=== PATIENT | male | born 1980 | race Caucasian/White ===

== ENCOUNTER 2022-05-05 05:01 | Emergency (ER) | payer OTHER, SELFPAY ==
[2022-05-05] VITALS (17 sets, daily range): BP systolic 111–146; BP diastolic 62–93; PULSE 63–98; RESP 11–16; TEMP 36.1; O2SAT 93–98
--- NOTE | ~2022-05-05 | CT_ITS ---
EXAMINATION: CT abdomen pelvis wo con DATE: 05/05/2022 05:55 INDICATION: Left flank pain. TECHNIQUE: Computed tomography (CT) of the abdomen and pelvis was performed without intravenous contr ast. Automated exposure control and iterative reconstruction technique were employed. The dose-length product was 1336.82 mGy-cm. COMPARISON: None. FINDINGS: The visualized portions of the lung bases are clear without pneumonia or pleural effusion. The heart size is normal. No pericardial effusion. The liver and spleen are normal. There are changes of cholecystectomy. The pancreas and adrenal glands are normal. Right kidney are normal. There is a 1 mm stone in left kidney. There is prominent fat in left inguinal canal that may be a hernia. There are no dilated loops of bowel. The appendix is not visualized. There are no pathologically enlarged l ymph nodes. There is no free intraperitoneal fluid. There is mild thoracolumbar spondylosis. IMPRESSION: 1. 1 mm nonobstructing left kidney stone. 2. Prominent fat in left inguinal canal that may be a hernia. Reviewed, dictated and finalized at location A.
--- NOTE | ~2022-05-05 | CT_ITS ---
EXAMINATION: CTA abdomen pelvis DATE: 05/05/2022 07:28 INDICATION: Left flank pain. TECHNIQUE: Computed tomographic angiography (CTA) of the abdomen and pelvis was performed with 100 mL Omnipaque-350 intravenous contrast. Automated exposure control and iterative reconstruction techniqu e were employed. The dose-length product was 1030.99 mGy-cm. Maximum intensity projection 3D-reconstr uctions of the aorta and other arteries were constructed by the technologist on a separate workstatio n. COMPARISON: CT abdomen and pelvis 05/05/2022 FINDINGS: The visualized portions of the lung bases demonstrate mild atelectasis. No pleural effusion . The heart size is normal. No pericardial effusion. The liver and spleen are normal. There are winters es of cholecystectomy. The pancreas, adrenal glands, and kidneys are normal. There is prominent fat i n left inguinal canal that may be a hernia. There are no dilated loops of bowel. The appendix is not visualized. There are no pathologically enlarged lymph nodes. There is no free intraperitoneal fluid. Abdominal aorta is normal in caliber. 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 There is no significant stenosis of superior mesenteric artery, inferior mesenteric artery, or the renal arteries. There is mild thoracolumbar spondylosis. IMPRESSION: 1. Prominent fat in the left inguinal canal that may be a hernia. 2. 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 Reviewed, dictated and finalized at location A. IMPRESSION: 1. Prominent fat in the left inguinal canal that may be a hernia. 2. 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
--- NOTE | 2022-05-05 05:05 | ED.BACK ---
HPI - Back Pain/Injury General Chief Complaint: Back Pain/Injury <Elizabeth Chacko MD - Last Filed: 05/05/22 07:20> Stated Complaint: left flank pain x several months <Elizabeth Chacko MD - Last Filed: 05/05/22 07:20> Time Seen by Provider: 05/05/22 05:05 <Elizabeth Chacko MD - Last Filed: 05/05/22 07:20> Source: patient <Elizabeth Chacko MD - Last Filed: 05/05/22 07:20> Mode of arrival: ambulatory <Elizabeth Chacko MD - Last Filed: 05/05/22 07:20> Limitations: no limitations <Elizabeth Chacko MD - Last Filed: 05/05/22 07:20> History of Present Illness HPI Narrative: The patient is a 42-year-old male with a history of hypertension, hyperlipidemia, type 2 diabetes, pancreatitis, presenting to the emergency department for evaluation of left flank pain. Patient states he has had left flank pain intermittently over the past 3 weeks since he was discharged home from [facility] where he was admitted for pancreatitis. Patient denies alcohol use, states that they attributed his pancreatitis to medication he was taking for his diabetes. Patient states he does not remember the name of his medication. Patient states he is now taking Jardiance which she has been tolerating well. He reports intermittent left flank pain that has been acute and sharp in nature, worsening over the past evening. Patient associated nausea without vomiting. He denies fever, chills, chest pain, back pain. He does report left lower flank pain. He denies testicular pain. He denies dysuria or hematuria. Patient states that he was referred to a GI specialist at [place] for his pancreatitis and has not had follow-up at this point. He also was referred to urology for kidney stones that were found on his CT scan at [facility], has not had follow-up with urology at this point either. <Elizabeth Chacko MD - Last Filed: 05/05/22 07:20> Related Data Allergies/Adverse Reactions: Allergies Allergy/AdvReac Type Severity Reaction Status Date / Time No Known Allergies Allergy Verified 05/05/22 05:15 <Elizabeth Chacko MD - Last Filed: 05/05/22 07:20> Review of Systems Review of Systems: CONSTITUTIONAL: Denies fever, chills, or sweats. CARDIOVASCULAR: Denies chest pain, palpitations, or edema. RESPIRATORY: Denies cough or dyspnea. GASTROINTESTINAL: Denies abdominal pain, nausea, vomiting, or diarrhea. Reports left flank pain. GENITOURINARY: Denies dysuria or hematuria. SKIN: Denies rash or itching. MUSCULOSKELETAL: Reports left back pain, denies other joint pain, or myalgia. NEUROLOGIC: Denies headache, numbness, or weakness. <Elizabeth Chacko MD - Last Filed: 05/05/22 07:20> [facility] Social History Social History: Social History (Updated 05/05/22 @ 05:31 by Elizabeth Chacko MD) Smoking status: Current every day smoker Tobacco type: cigarettes Alcohol intake: never Substance use: never Living arrangements: with family Gender identity (if verbalized by the patient): Male <Elizabeth Chacko MD - Last Filed: 05/05/22 07:20> Exam Narrative: GENERAL: Awake, alert, conversant HEAD: Normocephalic, atraumatic. EYES: PERRLA and EOMI. ENT: Nares clear, no rhinorrhea or epistaxis. Mucous membranes moist. NECK: Supple. CHEST: No respiratory distress, breathing even and non labored HEART: Regular rate, sinus rhythm ABDOMEN:Non distended, non tender throughout all 4 quadrants, no rebound, rigidity or guarding. No flank tenderness bilaterally. No midline lumbar pain. EXTREMITIES: Normal range of motion. No edema. SKIN: Warm, dry, no rash. NEURO:No focal deficits. Alert and oriented x3 <Elizabeth Chacko MD - Last Filed: 05/05/22 07:20> Course Reevaluation(s) Reevaluation #1: CT was concerning for possible median arcuate ligament syndrome. Case was discussed with our general surgeon and they recommend following up with vascular. Case was discussed with vascular at [facility]
[2022-05-05] MEDS: SODIUM CHLORIDE 0.9% IV 1,000 ML 999 ML IV CONT (05:36)
[2022-05-05] MEDS: ONDANSETRON INJ 4 MG/2 ML VIAL IV PUSH (05:37)
[2022-05-05] MEDS: MORPHINE SULFATE (*CRX) 4 MG/ML INJ IV PUSH (05:38)
[2022-05-05 06:05] LABS: Basophils Absolute Auto 0.1 K/mm3 (0.0-0.1); Basophils Percent Auto 0.8 % (0.2-1.2); Eosinophils Absolute Auto 0.3 K/mm3 (0-0.3); Eosinophils Percent Auto 3.3 % (0-4.4); Hematocrit 52.6 % (42.0-52.0); Hemoglobin 17.3 g/dL (14.0-18.0); Immature Granulocyte Absolute 0.05 K/mm3 (0.00-0.031); Immature Granulocyte Percent A 0.6 % (0-0.5); Lymphocytes Absolute Auto 2.87 K/mm3 (0.9-3.2); Mean Corpuscular HGB Conc 32.9 g/dl (32-36); Mean Corpuscular Hemoglobin 30.1 pg (26-34); Mean Corpuscular Volume 91.6 fl (80-100); Mean Platelet Volume 10.2 fl (7.4-10.4); Monocytes Absolute Auto 0.7 K/mm3 (0.1-0.6); Monocytes Percent Auto 8.3 % (2.6-8.5); Neutrophils Absolute Auto 4.5 K/mm3 (1.3-6.7); Platelet Count Result 267 k/mm3 (150-375); Red Blood Count 5.74 M/mm3 (4.6-6.20); Red Cell Distribution Width 12.4 % (11.5-14.5); White Blood Count 8.4 K/mm3 (4.5-10.0)
[2022-05-05 06:14] LABS: Alanine Aminotransferase 70 U/L (6-50); Albumin Level 4.6 g/dL (3.5-5.1); Alkaline Phosphatase 73 U/L (38-126); Anion Gap 9 mmol/L (8-16); Aspartate Amino Transferase 52 U/L (17-59); Bilirubin,Total 0.7 mg/dL (0.2-1.3); Blood Urea Nitrogen 15 mg/dL (9-20); Calcium 9.1 mg/dL (8.4-10.2); Carbon Dioxide 22 mmol/L (22-30); Chloride 104 mmol/L (98-107); Estimated CRCL calculation 136 ml/min; Estimated Glomerular Filt Rate > 60; Glucose 185 mg/dL (65-110); Lipase 330 U/L (23-300); Potassium 4.2 mmol/L (3.4-5.0); Sodium 135 mmol/L (137-145)
[2022-05-05 06:54] LABS: SARS-CoV-2 RNA PCR Negative
[2022-05-05 07:01] LABS: Add Urine Microscopic? YES; Appearance Urine Clear (Clear); Bilirubin Urine Negative (Negative); Blood Urine 2+ (Negative); Color Urine Yellow (Yellow); Glucose Urine UA 3+ mg/dL (Negative); Ketones Urine Trace mg/dL (Negative); Leukocyte Esterase Ur Negative LEU/UL (Negative); Nitrate Urine Negative (Negative); Protein Urine Negative (Negative); RBC Urine 0-2 /hpf (0-2); Squamous Epithelial Cell Urine Rare /hpf (Few); Urobilinogen Urine Negative mg/dL (<2.0); WBC Urine 0-3 /hpf
[2022-05-05 07:02] LABS: Specific Grav Ur 1.036 (1.001-1.035)
--- NOTE | 2022-05-05 07:09 | PC.NURSE ---
Report given to MARCIANO Burgess.
[2022-05-05] MEDS: KETOROLAC 15 MG/ML VIAL (*BKC) IV PUSH (08:50)
== END 2022-05-05 08:50 | disposition home or self-care (01) ==
PROVIDERS: Emergency Provider Emergency Medicine
DX: R10.9 Unspecified abdominal pain (principal); I77.4 Celiac artery compression syndrome; F17.210 Nicotine dependence, cigarettes, uncomplicated; Z20.822 Contact with and (suspected) exposure to COVID-19
CPT/HCPCS: 36415; 74174; 74176; 80053; 81001; 83690; 85025; 96361; 96365; 96375; 99284; C9803; J0131; J1885; J2270; J2405; J7030; Q9967; U0003; U0005